=== PATIENT | male | born 1955 | race Caucasian/White ===

== ENCOUNTER 2018-02-11 11:47 | Day surgery (SDC) | payer BC, MEDICARE, OTHER ==
[2018-02-09 10:22] LABS: BASOPHILS # (AUTO) 0.06 x10^3/uL (0-0.1); BASOPHILS % (AUTO) 1 % (0-1); EOSINOPHILS # (AUTO) 0.26 x10^3/uL (0-0.4); EOSINOPHILS % (AUTO) 3 % (1-7); LYMPHOCYTES # (AUTO) 2.95 x10^3/uL (1-3.4); LYMPHOCYTES % (AUTO) 39 % (22-44); MD NO; MEAN CORPUSCULAR HEMOGLOBIN 31.8 pg (27.5-34.5); MEAN CORPUSCULAR HGB CONC 34.3 g/dL (33.2-36.2); MEAN CORPUSCULAR VOLUME 92.7 fL (81-97); MEAN PLATELET VOLUME 7.8 fL (7.4-10.4); MONOCYTES # (AUTO) 0.65 x10^3/uL (0.2-0.8); MONOCYTES % (AUTO) 9 % (2-9); NEUTROPHILS # (AUTO) 3.67 x10^3/uL (1.8-6.8); NEUTROPHILS % (AUTO) 48 % (42-75); PLATELET COUNT 275 x10^3/uL (130-400); RED BLOOD COUNT 4.99 x10^6/uL (4.38-5.82); RED CELL DISTRIBUTION WIDTH 13.3 % (9.4-14.8)
[2018-02-09 10:33] LABS: ALANINE AMINOTRANSFERASE 49 U/L (12-78); ALBUMIN 3.6 g/dL (3.4-5.0); ANION GAP 9 mmol/L (5-15); CALCIUM 8.9 mg/dL (8.5-10.1); CHLORIDE 110 mmol/L (98-107); CREATININE 1.77 mg/dL (0.7-1.3)
[2018-02-09 10:35] LABS: ALKALINE PHOSPHATASE 75 U/L (45-117); BILIRUBIN,TOTAL 0.5 mg/dL (0.2-1.0); TOTAL PROTEIN 7.3 g/dL (6.4-8.2)
[~2018-02-11] VITALS: Ht 180.3 cm; Wt 84.2 kg
[~2018-02-11 11:47] MED LIST: EB-N3 PO; IBUP-1223 PO; LEVO25TA4; LISI-467 PO
[2018-02-11] MEDS ORDERED: ACETAMINOPHEN 500 MG TABLET PO ONE ×2 (12:30→13:30)
[2018-02-11] MEDS ORDERED: METOPROLOL 1 MG/ML, 5ML IV PRN (12:30)
[2018-02-11] MEDS ORDERED: HYDROmorphone 1 MG/ML, 1ML IV PRN (12:30)
[2018-02-11] MEDS ORDERED: ALBUTEROL SULFATE 2.5 MG/3 ML NPPB PRN (12:30)
[2018-02-11] MEDS ORDERED: LABETALOL 5MG/ML, 20ML IV PRN (12:30)
[2018-02-11] MEDS ORDERED: hydrALAzine 20 MG/ML, 1ML IV PRN (12:30)
[2018-02-11] MEDS ORDERED: MEPERIDINE/PF 25MG/0.5ML IVPush PRN (12:30)
[2018-02-11] MEDS ORDERED: OXYcodone 5 MG/5 ML ORAL.SOL UDC PO PRN (12:30)
[2018-02-11] MEDS ORDERED: ONDANSETRON ODT 8 MG PO ONE ×2 (12:30→13:30)
[2018-02-11] MEDS ORDERED: ONDANSETRON 2MG/ML, 2ML IV PRN (12:30)
[2018-02-11] MEDS ORDERED: OXYcodone IR 5MG TABLET PO ONE ×2 (12:30→13:30)
[2018-02-11] MEDS ORDERED: FENTANYL PF 100 MCG/2ML IV PRN (12:30)
[2018-02-11] MEDS ORDERED: GABAPENTIN 300 MG CAPSULE PO ONE ×2 (12:30→13:30)
[2018-02-11] MEDS ORDERED: PROMETHAZINE 25 MG/ML, 1ML IV PRN (12:30)
[2018-02-11] MEDS ORDERED: EPHEDRINE 50 MG/ML, 1ML IVPush PRN (12:30)
[2018-02-11] MEDS ORDERED: FENTANYL PF 100 MCG/2ML ONE ×2 (12:46→14:21)
[2018-02-11] MEDS ORDERED: MIDAZOLAM 1 MG/ML, 2ML ONE (12:46)
[2018-02-11] MEDS ORDERED: BUPIVACAINE/PF 0.5% ONE (12:50)
[2018-02-11] MEDS ORDERED: PROPOFOL 10 MG/ML, 20ML ONE (12:50)
[2018-02-11] MEDS ORDERED: ROCURONIUM 10MG/ML,5ML ONE (12:51)
[2018-02-11] MEDS ORDERED: CEFAZOLIN 1,000 MG ONE ×2 (12:51)
[2018-02-11 13:01] VITALS: BP 143/97
[2018-02-11] MEDS ORDERED: BUPIVACAINE/PF-EPI 0.5% 1:200K ONE (13:04)
[2018-02-11] MEDS ORDERED: LACTATED RINGERS 1,000 ML IV SCH (13:07)
[2018-02-11] MEDS ORDERED: NEOSTIGMINE 1 MG/ML, 10ML ONE (13:25)
[2018-02-11] MEDS ORDERED: GLYCOPYRROLATE 0.2MG/1ML, 5ML ONE (13:25)
[2018-02-11] MEDS ORDERED: DEXAMETHASONE 4 MG/ML, 1ML ONE (13:25)
[2018-02-11] MEDS ORDERED: SCOPOLAMINE PATCH, 1.5MG PATCH.TD72 TD ONE (13:30)
[2018-02-11] MEDS ORDERED: OXYcodone 5 MG/5 ML ORAL.SOL UDC ONE (17:29)
== END 2018-02-11 22:06 | disposition home or self-care (01) ==
LOC: OUT 11:47 → 4NOR 19:30 → OUT 22:06
PROVIDERS: ATTEND Surgery
DX: K43.9 Ventral hernia without obstruction or gangrene (principal); K42.9 Umbilical hernia without obstruction or gangrene; I10 Essential (primary) hypertension; Z79.82 Long term (current) use of aspirin; Z87.891 Personal history of nicotine dependence
CPT/HCPCS: 36415; 49652; 49654; 80053; 85025; 93005; J0690; J2250; J2704; J3010; J3490; Q0162; S2900; J1100; J2710; C1781